=== PATIENT | male | born 1955 | race Caucasian/White ===

== ENCOUNTER 2017-05-02 11:14 | Day surgery (SDC) | payer OTHER ==
[~2017-05-02] VITALS: Ht 182.9 cm; Wt 152.0 kg
[~2017-05-02 11:14] MED LIST: AMLO5TAB2 PO; CARV25TA12 PO; MULT-224 PO; RIVA20TA PO; TELM80TA PO; TERA2CAP3 PO; potassium PO
[2017-05-02] MEDS ORDERED: LACTATED RINGERS 1,000 ML IV SCH ×2 (12:47→22:00)
[2017-05-02] MEDS ORDERED: ISOSULFAN BLUE 10 MG/ML, 5ML IV ONE (16:41)
[2017-05-02] MEDS ORDERED: BUPIVACAINE/PF 0.5% ONE (16:41)
[2017-05-02] MEDS ORDERED: EPINEPHRINE 1 MG/ML, 1ML ONE (16:42)
[2017-05-02] MEDS ORDERED: CEFAZOLIN 1,000 MG ONE (17:00)
[2017-05-02] MEDS ORDERED: DEXAMETHASONE 4 MG/ML, 1ML ONE (17:00)
[2017-05-02] MEDS ORDERED: PROPOFOL 10 MG/ML, 20ML ONE (17:00)
[2017-05-02] MEDS ORDERED: ONDANSETRON 2MG/ML, 2ML ONE (17:00)
[2017-05-02] MEDS ORDERED: ACETAMINOPHEN 650 MG/20.3 ML UDC ONE (18:57)
[2017-05-02] MEDS ORDERED: OXYcodone 5 MG/5 ML ORAL.SOL UDC ONE (18:58)
[2017-05-02] MEDS ORDERED: hydrALAzine 20 MG/ML, 1ML ONE (19:18)
[2017-05-02] MEDS ORDERED: LABETALOL 5MG/ML, 20ML ONE (19:19)
[2017-05-02] MEDS: LABETALOL 5MG/ML, 20ML IV PRN ×3 (19:21→19:44)
[2017-05-02] MEDS ORDERED: METOCLOPRAMIDE 5 MG/ML, 2ML IV PRN (19:30)
[2017-05-02] MEDS ORDERED: HYDROmorphone 1 MG/ML, 1ML IV PRN (19:30)
[2017-05-02] MEDS ORDERED: PROMETHAZINE 25 MG/ML, 1ML IV PRN (19:30)
[2017-05-02] MEDS ORDERED: ACETAMINOPHEN 325 MG TABLET PO PRN (19:30)
[2017-05-02] MEDS ORDERED: hydrALAzine 20 MG/ML, 1ML IV PRN (19:30)
[2017-05-02] MEDS ORDERED: FENTANYL PF 100 MCG/2ML IV PRN (19:30)
[2017-05-02] MEDS ORDERED: OXYcodone 5 MG/5 ML ORAL.SOL UDC PO PRN (19:30)
[2017-05-02] MEDS ORDERED: ONDANSETRON 2MG/ML, 2ML IVPush PRN ×2 (19:30→22:00)
[2017-05-02] MEDS ORDERED: HYDROcodone/APAP 7.5-325MG/15ML UDC PO PRN (22:00)
[2017-05-02] MEDS ORDERED: DIPHENHYDRAMINE 50 MG/ML, 1ML IVPush PRN (22:00)
[2017-05-02] MEDS ORDERED: MORPHINE SULFATE 4 MG/ML, 1ML IVPush PRN (22:00)
== END 2017-05-02 23:15 | disposition home or self-care (01) ==
LOC: OUT 11:14 → EDSTATUS 17:00 → 4NOR 20:30 → OUT 23:15
PROVIDERS: ATTEND Surgery
DX: C43.59 Malignant melanoma of other part of trunk (principal); I10 Essential (primary) hypertension; Z85.828 Personal history of other malignant neoplasm of skin; Z98.890 Other specified postprocedural states; Z72.89 Other problems related to lifestyle
CPT/HCPCS: 22900; 36415; 38525; 78195; 85610; 86850; 86900; 88307; A9541; J0171; J0360; J0690; J1100; J1170; J2250; J2405; J2704; J3010; J3490; J7120; 88342; G0461